=== PATIENT | female | born 1945 | race African-American/Black ===

== ENCOUNTER 2017-02-21 22:24 | Emergency (ER) | payer MEDICARE, OTHER ==
[~2017-02-21] VITALS: Ht 160 cm; Wt 109.8 kg
[~2017-02-21 22:24] MED LIST: AMLO10TA2 PO; AMLO5TAB4 PO; ASPI81TA2 PO; CARV25TA PO; CARV25TA2; CARV3.12 PO; CLON1PAT11 TD; FLUT1DIS3 IH; FOLI1TAB16 PO; HYDR-2666 PO; HYDR-2680 PO; HYDR-2867 PO; HYDR100T24 PO; HYDR12.58 PO; INSU100I13 SQ; INSU100V8 SQ; IPRA4AER IH; ISOS1TAB2 PO; ISOS30TA4 PO; Inhaler; K-DUR PO; LEVO0.5P MC; LEVO750T5 PO; LEVO75TA PO; LOSA1TAB16 PO; LOSA50TA6 PO; MULT1TAB97 PO; POTA99TA10 PO; SIMV10TA3 PO; TRAM50TA PO; VALIUM10 MG PO
[2017-02-21] MEDS ORDERED: IPRATRPIUM/ALBUTEROL 0.5/2.5MG 3 ML NEBU. NEB ONE (22:45)
[2017-02-21 23:06] LABS: BASO # 0.2 x10^3/uL (0.0-0.2); BASO % 1 % (0-3); EOS % 2 % (0-3); HEMATOCRIT 29.8 % (36.0-47.0); HEMOGLOBIN 9.5 g/dL (12.0-15.5); LYMPH # 1.9 x10^3/uL (1.0-4.8); LYMPH % 17 % (24-48); MEAN CORPUSCULAR HEMOGLOBIN 26 pg (25-35); MEAN CORPUSCULAR HGB CONC 32 g/dL (31-37); MEAN CORPUSCULAR VOLUME 82 fL (79-100); MONO % 11 % (0-9); NEUT % 70 % (31-73); PLATELET COUNT 260 x10^3/uL (140-400); RED BLOOD COUNT 3.64 x10^6/uL (3.50-5.40); RED CELL DISTRIBUTION WIDTH 18.3 % (11.5-14.5); WHITE BLOOD COUNT 11.8 x10^3/uL (4.0-11.0)
[2017-02-21] MEDS ORDERED: AZIT250T6 PO (23:14)
[2017-02-21] MEDS ORDERED: PRED50TA PO (23:14)
--- NOTE | 2017-02-21 23:14 | PHYS DOC ---
Past Medical History Past Medical History: Arthritis, CHF, COPD, CVA, Diabetes-Type II, Hypertension , Sciatica Additional Past Medical Histor: Thyroid Disease, L side weakness d/t CVA, home o2 use, L DETACHED RETINA Past Surgical History: Tubal ligation, Other Additional Past Surgical Histo: Thyroidectomy, L breast Biopsy Alcohol Use: Occasionally Drug Use: None Adult General Chief Complaint Chief Complaint: SHORTNESS OF BREATH HPI HPI 71-year-old female presenting to the emergency department with shortness of breath and cough over the past 24 hours. She reports a productive cough. She reports feeling generally weak. She is tried her nebulizer at home which mildly improved her symptoms. She comes in to our emergency department today by EMS. Onset today. Location lungs. Duration intermittent. Alleviated by nebulizer. Review of systems was negative for fevers chills abdominal pain nausea or vomiting. All other review of systems is negative unless otherwise noted in history of present illness. Review of Systems Review of Systems SEE ABOVE. Current Medications Current Medications Current Medications Medications (Trade) Dose Ordered Sig/Aisha Start Time Stop Time Status Last Admin Dose Admin Albuterol/ Ipratropium (Duoneb) 3 ml 1X ONCE 02/21/17 22:45 02/21/17 22:46 DC 02/21/17 22:53 3 ML Allergies Allergies Allergies Coded Allergies Type Severity Reaction Last Updated Verified MARIBEL Inhibitors Allergy Intermediate 05/20/15 Yes Physical Exam Physical Exam Constitutional: Well developed, well nourished, no acute distress, non-toxic appearance. HENT: Normocephalic, atraumatic, bilateral external ears normal, oropharynx moist, no oral exudates, nose normal. [] Eyes: PERRLA, EOMI, conjunctiva normal, no discharge. [] Neck: Normal range of motion, no tenderness, supple, no stridor. Cardiovascular:Heart rate regular rhythm, no murmur [] Lungs & Thorax: Wheezing bilaterally. Abdomen: Bowel sounds normal, soft, no tenderness, no masses, no pulsatile masses. Skin: Warm, dry, no erythema, no rash. [] Back: No tenderness, no CVA tenderness. Extremities: No tenderness, no cyanosis, no clubbing, ROM intact, no edema. [] Neurologic: Alert and oriented X 3, normal motor function, normal sensory function, no focal deficits noted. [] Psychologic: Affect normal, judgement normal, mood normal. [] Current Patient Data Vital Signs Vital Signs Date Time Temp Pulse Resp B/P Pulse Ox O2 Delivery O2 Flow Rate FiO2 02/21/17 22:53 86 Room Air 02/21/17 22:25 98.7 68 22 154/69 98.7 EKG EKG [] Radiology/Procedures Radiology/Procedures [] Course & Med Decision Making Course & Med Decision Making Pertinent Labs and Imaging studies reviewed. (See chart for details) [] 71-year-old female presenting to the emergency department with worsening shortness of breath. Vital signs afebrile. Saturating on her baseline oxygen requirement of 2 L at home. The patient was given a DuoNeb and oral prednisone in the emergency department. Symptoms subsequently improved. On reexamination she was feeling better and she was subsequent discharged home to follow up with her PCP. I provided her with oral prednisone and azithromycin for her copd exacerbation. face to face d/c instruction and return precautions given. pt comfortable with plan. Dragon Disclaimer Dragon Disclaimer This electronic medical record was generated, in whole or in part, using a voice recognition dictation system. Departure Departure Impression: Primary Impression: COPD (chronic obstructive pulmonary disease) Additional Impression: COPD exacerbation Disposition: HOME, SELF-CARE Condition: STABLE Referrals: NO PCP (PCP) AC GIBBS MD Patient Instructions: Chronic Obstructive Pulmonary Disease Exacerbation Scripts Azithromycin (Azithromycin Tablet)250 Mg Tablet1 Pkg PO UD #6 TAB Prov:GUS DEWITT MD 02/21/17 Prednisone 50 Mg [id number] Mg PO DAILY #5 TAB Prov:GUS DEWITT MD 02/21/17 Problem Qualifiers GUS DEWITT MD Feb 21, 2017 23:14
[2017-02-21 23:19] LABS: CALCIUM 8.9 mg/dL (8.5-10.1); CREATININE 1.9 mg/dL (0.6-1.0); GFR 31.7; POTASSIUM 4.4 mmol/L (3.5-5.1)
[2017-02-21 23:24] LABS: ALBUMIN 3.3 g/dL (3.4-5.0); DIRECT BILIRUBIN 0.1 mg/dL (0.0-0.2); TOTAL BILIRUBIN 0.2 mg/dL (0.2-1.0); TOTAL PROTEIN 7.4 g/dL (6.4-8.2)
[2017-02-22 01:00] VITALS: BP 160/72
--- NOTE | 2017-02-22 06:14 | EKG ---
[facility] [address] [place] [address] Test Date: 2017-02-21 Test Time: 22:40:22 Pat Name: LEE LUQUE Department: Room: Gender: F [employer]: : [id number] Requested By: GUS DEWITT Order Number: [id number] Reading MD: Measurements Intervals [place] Rate: 67 P: 54 [place]: 168 QRS: -14 QRSD: 144 T: 90 QT: 460 QTc: 489 Interpretive Statements SINUS RHYTHM LEFTWARD AXIS NON SPECIFIC INTRAVENTRICULAR BLOCK ABNORMAL ECG RI6.01 No previous ECG available for comparison
--- NOTE | 2017-02-22 08:48 | RAD ---
AP portable chest radiograph 02/21/2017 Clinical History: Cough and chest pain. An AP portable erect digital radiograph of the chest was obtained. Comparison study is dated 12/18/2016. The cardiac silhouette is mildly enlarged. The thoracic aorta is tortuous. Atherosclerotic calcification of the thoracic aorta is seen. No acute pulmonary infiltrate is noted. No pneumothorax or pleural effusion is seen. The osseous structures are unchanged. Impression: Mild cardiomegaly. No acute pulmonary infiltrate is seen.
== END 2017-02-22 01:20 | disposition home or self-care (01) ==
LOC: ER 22:24
DX: J44.1 Chronic obstructive pulmonary disease with (acute) exacerbation (principal); M19.90 Unspecified osteoarthritis, unspecified site; I11.0 Hypertensive heart disease with heart failure; I50.9 Heart failure, unspecified; E11.9 Type 2 diabetes mellitus without complications; E89.0 Postprocedural hypothyroidism; Z99.81 Dependence on supplemental oxygen; Z86.73 Personal history of transient ischemic attack (TIA), and cerebral infarction without residual deficits; Z88.8 Allergy status to other drugs, medicaments and biological substances
CPT/HCPCS: 36415; 71010; 80048; 80076; 83690; 83880; 84484; 85027; 93005; 94640; 99285; J7620